=== PATIENT | female | born 1960 | race Two or more races ===

== ENCOUNTER → 2018-07-31 06:21 | Day surgery (SDC) | payer BC ==
[~2018-07-31 06:21] MED LIST: Acetaminophen TAB* 325 MG ONE; Acetaminophen TAB* 325 MG PO ONE; Acetaminophen TAB* 325 MG PO PRN; Buffered Lidocaine 0.9% SYRIN* 5 ML/SYR SYRINGE INTRADERM ONE; Dexamethasone IV* 4 MG/ML 1 ML (4 MG) ONE; DiMENhydriNATE IV* 50 MG/ML VIAL IV PUSH PRN; Famotidine IV* 10 MG/ML 2 ML (20 mg) ONE; Ibuprofen TAB* 600 MG PO PRN; Ketorolac INJ* 30 MG/ML 1 ML VIAL ONE; Lactated Ringers 1000 ML Bag* 1,000 ML IV SCH; Levalbuterol 0.63MG/3ML NEB* UNIT OF USE INH PRN; Lidocaine 2% PF * 5 ML VIAL ONE; Midazolam* 1 MG/ML 2 ML VIAL (2 MG) ONE; Naloxone* 0.4 MG/ML 1 ML VIAL IV PRN; Ondansetron INJ* 2 MG/ML VIAL ONE; PROCHLORPERAZINE INJ 5 MG/ML 2 ML VIAL IV PRN; Propofol* 10 MG/ML 20 ML BTL ONE; Scopolamine 1.5 mg* PATCH TRANSDERM PRN; Scopolamine PATCH Remove* 1 NOTE MISC PATCH OFF ONE; ceFAZolin 2 GM PREMIX in ORs 2 GM/50 ML BAG IVPB ONE; diPHENhydraMINE IV* 50 MG/ML 1 ml VIAL (BENADRYL) IV PRN; fentaNYL* 50 MCG/ML 2 ML VIAL (100 MCG VIAL) IV PRN; fentaNYL* 50 MCG/ML 2 ML VIAL (100 MCG VIAL) ONE; oxyCODONE TAB* 5 MG TAB PO PRN; oxyCODONE/Acetamin 5/325 MG* TAB PO PRN
[2018-07-31 07:19] LABS: ABS Basophils 0 10^3/ul (0-0.2); ABS Eosinophils 0 10^3/ul (0-0.6); ABS Lymphocytes 1.4 10^3/ul (1.0-4.8); ABS Monocytes 0.5 10^3/ul (0-0.8); ABS Neutrophils 1.8 10^3/ul (1.5-7.7); ABS Nucleated RBC 0 10^3/ul; Eosinophil % 1.3 %; Hematocrit 38 % (35-47); Hemoglobin 12.1 g/dl (12.0-16.0); Lymphocyte % 38.4 %; Mean Corpuscular HGB Conc 32 g/dl (31-36); Mean Corpuscular Hemoglobin 27 pg (27-31); Mean Corpuscular Volume 82 fL (80-97); Mean Platelet Volume 7.2 fL (7.4-10.4); Nucleated Red Blood Cells % 0.1; Platelet Count 291 10^3/ul (150-450); Red Blood Count 4.58 10^6/ul (4.00-5.40); Red Cell Distribution Width 14 % (10.5-15); White Blood Count 3.8 10^3/ul (3.5-10.8)
[2018-07-31 10:24] VITALS: BP 147/95
--- NOTE | 2018-07-31 10:35 | OP ---
CC: Dr. Amato [facility]* OPERATIVE REPORT: DATE OF OPERATION: 07/31/18 - [facility] DATE OF : 62 SURGEON: Kiran Amato MD ANESTHESIOLOGIST: Dr. Riggs. ANESTHESIA: General endotracheal anesthesia. PRE-OP DIAGNOSES: 1. Postmenopausal bleeding. 2. Thickened endometrium. 3. Hymenal ring remnant. 4. Left vaginal cyst. POST-OP DIAGNOSES: 1. Postmenopausal bleeding. 2. Thickened endometrium. 3. Hymenal ring remnant. 4. Left vaginal cyst. OPERATIVE PROCEDURE: Dilation, hysteroscopy, curettage, MyoSure polypectomy, excision of hymenal ring remnant and excision of left vaginal cyst. ESTIMATED BLOOD LOSS: Minimal less than 20 cc. FINDINGS: Small anteverted uterus, midline, no adnexal masses palpated, atrophic appearing endometrium except for a small polyp on the anterior uterine wall near to the right tubal ostia, which was excised with the MyoSure. There was approximately 1 cm posterior introital hymenal ring remnant and a 0.3 cm left introital vaginal cyst. COMPLICATIONS: None. COUNTS: Sponge, lap and needle count were correct x2. CONDITION: The patient was brought to the recovery room, awake and in stable condition. DESCRIPTION OF PROCEDURE: The patient was brought to the operating room. When general anesthesia was found to be adequate, the patient was prepped and draped in the usual sterile fashion in the dorsal lithotomy position. A time-out was performed. Exam under anesthesia was performed. The bladder was emptied of approximately 150 cc of clear urine. The weighted speculum was placed in the vagina. The anterior lip of the cervix was grasped with the single-tooth tenaculum and the cervix was gently and easily dilated with the graduated Hegar dilators. The MyoSure scope was introduced with the above findings noted. The polyp was removed in its entirety and sent to Pathology. The MyoSure was removed. The hymenal ring remnant was grasped with smooth graspers and excised with a small scalpel. This was sent to Pathology and 2 sutures of 3-0 Vicryl were placed with excellent hemostasis. There was a small left vaginal cyst at the introitus, which was not seen prior to the surgery. This was excised with a scalpel and a single interrupted suture of 3-0 Vicryl was placed with excellent hemostasis. The patient tolerated the procedure well. All instruments were removed from the vagina and the patient was brought to the recovery room awake and in stable condition. [id number]/[facility] #: [id number] FELIPE
== END | disposition home or self-care (01) ==
LOC: OR 06:21
PROVIDERS: ATTEND Obstetrics & Gynecology
DX: N93.8 Other specified abnormal uterine and vaginal bleeding (principal); N84.0 Polyp of corpus uteri; N89.8 Other specified noninflammatory disorders of vagina; J45.909 Unspecified asthma, uncomplicated; R00.2 Palpitations; F41.9 Anxiety disorder, unspecified
CPT/HCPCS: 36415; 85025; 86850; 86900; 86901; 88304; 88305; A9270-GY; J0690; J1100; J1885; J2250; J2405; J2704; J3010